=== PATIENT | male | born 1965 | race African-American/Black ===

== ENCOUNTER 2024-11-06 09:20 | Emergency (ER) | payer MEDICAID ==
[~2024-11-06] VITALS: Ht 188 cm; Wt 100.0 kg
[2024-11-06 09:26] VITALS: O2SAT 99
[2024-11-06 09:55] LABS: BASOPHILS % 0.5 % (0.0-2.0); DIFFERENTIAL COMMENT 0; EOSINOPHILS % 1.4 % (0.0-5.0); HEMATOCRIT. 39.9 % (42.0-52.0); HEMOGLOBIN. 12.7 g/dL (14.0-18.0); LYMPHOCYTES % 35.1 % (20.0-50.0); MEAN CORPUSCULAR HEMOGLOBIN 24.3 pg (28.0-32.0); MEAN CORPUSCULAR HGB CONC 31.8 g/dL (31.0-37.0); MEAN CORPUSCULAR VOLUME 76.4 fL (80.0-94.0); MEAN PLATELET VOLUME 7.9 fl (7.4-10.4); MONOCYTES % 7.8 % (2.0-8.0); NEUTROPHILS % 55.2 % (40.0-76.0); PLATELET 158 x1000/uL (130-400); RED BLOOD CELL COUNT 5.23 mill/uL (4.7-6.1); RED CELL DISTRIBUTION WIDTH 13.7 % (11.6-14.6); WHITE BLOOD COUNT 4.8 x1000/uL (4.5-11.0)
[2024-11-06 10:02] LABS: CHLORIDE 107 mEq/L (98-107); POTASSIUM 3.7 mEq/L (3.5-5.1); SODIUM 142 mEq/L (136-145)
[2024-11-06 10:03] LABS: CARBON DIOXIDE 28 mEq/L (21-32)
[2024-11-06 10:04] LABS: CALCIUM 9.5 mg/dL (8.7-10.4)
[2024-11-06 10:08] LABS: CREATININE 1.1 mg/dL (0.6-1.3)
[2024-11-06 10:09] LABS: ETHANOL BLOOD < 10 mg/dL (<10); GLUCOSE 99 mg/dL (70-105); UREA NITROGEN BLOOD 9 mg/dL (9-23)
[2024-11-06 10:10] LABS: ACETAMINOPHEN < 2 ug/mL (10-30)
[2024-11-06 10:31] LABS: CLARITY URINE CLEAR (CLEAR); COLOR URINE DARK YELLOW (YELLOW); GLUCOSE URINE NEGATIVE (NEGATIVE); KETONES URINE 1+ (NEGATIVE); LEUKOCYTE ESTERASE URINE NEGATIVE (NEGATIVE); NITRITE URINE NEGATIVE (NEGATIVE); OCCULT BLOOD URINE NEGATIVE (NEGATIVE); PH URINE 5.5 (4.5-8.0); PROTEIN URINE TRACE (NEGATIVE); SPECIFIC GRAVITY URINE 1.033 (1.005-1.030)
[2024-11-06 10:51] LABS: *AMPHETAMINES SCREEN URINE NEGATIVE (NEGATIVE)
[2024-11-06 10:52] LABS: *BARBITURATES SCREEN URINE NEGATIVE (NEGATIVE); *BENZODIAZEPINES SCREEN URINE NEGATIVE (NEGATIVE); *COCAINE SCREEN URINE NEGATIVE (NEGATIVE); CANNABINOID URINE SCREEN NEGATIVE (NEGATIVE); ECSTASY MDMA SCREEN URINE NEGATIVE (NEGATIVE); METHADONE URINE SCREEN NEGATIVE (NEGATIVE); OPIATES URINE SCREEN NEGATIVE (NEGATIVE); PHENCYCLIDINE URINE SCREEN NEGATIVE (NEGATIVE)
[2024-11-06 11:08] LABS: MUCUS URINE 3+ /lpf (NONE/TRACE)
[2024-11-06 11:10] LABS: RBC URINE NONE SEEN /hpf (0-2); SQUAMOUS EPITHELIAL CELL URINE FEW /lpf (RARE/1+)
[2024-11-06 11:11] LABS: BACTERIA URINE NONE SEEN
[2024-11-06] MEDS ORDERED: DIPHENHYDRAMINE 50MG CAPSULE PO ONE (15:00)
[2024-11-06] MEDS: OLANZAPINE 5MG TABLET PO STA (15:28)
[2024-11-06] MEDS: DIPHENHYDRAMINE 25MG CAPSULE PO NR (15:30)
[2024-11-08] MEDS: DIPHENHYDRAMINE 50MG/ML VIAL IM PRN (03:26)
[2024-11-08] MEDS: OLANZAPINE 10 MG/VIAL IM ONE (03:26)
[2024-11-08] MEDS ORDERED: AMLODIPINE 5MG TABLET PO ONE (10:30)
[2024-11-08] MEDS: AMLODIPINE 5MG TABLET PO NR (17:44)
[2024-11-09] MEDS: OLANZAPINE 10MG TABLET PO SCH (01:52)
[2024-11-09] MEDS: DIPHENHYDRAMINE 25MG CAPSULE PO ONE (01:52)
[2024-11-09] MEDS: ZIPRASIDONE HCL 20MG CAPSULE PO SCH (17:44)
[2024-11-09 21:00] VITALS: BP 145/91; PULSE 75; RESP 16; TEMP 37.1; O2SAT 100
== END 2024-11-09 21:21 ==
LOC: ER 09:20
DX: R45.851 Suicidal ideations (principal); I10 Essential (primary) hypertension; Z59.00 Homelessness unspecified; F25.9 Schizoaffective disorder, unspecified; Z20.822 Contact with and (suspected) exposure to COVID-19; Z79.899 Other long term (current) drug therapy
CPT/HCPCS: 80305; 80048; 81003; 80307; 80329; 80320; 85025; 36415; 99285; 87426; 96372; Q0163 ×2; J3490; J1200; G0480